=== PATIENT | female | born 1955 | race Caucasian/White ===

== ENCOUNTER 2019-09-18 09:53 | Outpatient (CLI) | payer MEDICARE, SELFPAY ==
[2019-09-18 10:21] LABS: Creatinine Urine 83.88 mg/dL (40-278); Total Protein Urine Random 10.2 mg/dL (0.0-11.9)
[2019-09-18 11:00] LABS: Albumin Level 3.7 g/dL (3.4-5.0); Anion Gap 14.3 mmol/L (7-16); Blood Urea Nitrogen 25 mg/dL (7-18); Carbon Dioxide 26 mmol/L (21-32); Chloride 107 mmol/L (98-108); Estimated Glomerular Filt Rate 45; Glucose 74 mg/dL (70-99); Osmolality Calculated 299 mOsm/kg (285-295); Phosphorus 3.8 mg/dL (2.6-4.7); Potassium 4.3 mmol/L (3.5-5.1); Sodium 143 mmol/L (136-145)
[2019-09-23 13:18] LABS: Parathyroid Intact 84 pg/mL (14-64)
[2019-09-24 20:14] LABS: Vitamin D 25 Hydroxy 17 ng/mL (30-100)
== END 2019-09-18 09:54 | disposition home or self-care (01) ==
LOC: CHSLAB 09:56
PROVIDERS: PCP Nurse Practitioner Family; Visit Provider Internal Medicine Nephrology
DX: N18.3 Chronic kidney disease, stage 3 (moderate) (principal); I12.9 Hypertensive chronic kidney disease with stage 1 through stage 4 chronic kidney disease, or unspecified chronic kidney disease; R80.8 Other proteinuria
CPT/HCPCS: 36415; 80069; 82306; 82570; 83970; 84156

== ENCOUNTER 2021-06-02 11:40 | Outpatient (CLI) | payer MEDICARE, MEDICAID, SELFPAY ==
--- NOTE | ~2021-06-02 | XR_ITS ---
XR thoracic spine 3V DATE: 06/02/2021 12:44 INDICATION: Thoracic back pain, muscle spasms TECHNIQUE: AP, lateral and swimmer views COMPARISON: 10/16/2004 thoracic spine FINDINGS: There is diffuse osteopenia. There is minimal dextroscoliosis of the upper thoracic spine and slight levoscoliosis of the lower th oracic spine. Diffuse idiopathic skeletal hyperostosis of the mid and lower thoracic spine. No fracture or dislocation or bone destruction. The thoracic pedicles are intact. No paraspinal soft tissue thickening. IMPRESSION: Diffuse osteopenia Minimal scoliosis Diffuse idiopathic skeletal hyperostosis of the mid and lower thoracic spine Reviewed, dictated and finalized at location A. RACT SERVICEMAN
--- NOTE | ~2021-06-02 | XR_ITS ---
XR lumbar spine 2-3V DATE: 06/02/2021 12:45 INDICATION: Back pain, muscle spasm TECHNIQUE: AP, lateral, coned lateral lumbosacral views COMPARISON: 10/09/2008 lumbar spine FINDINGS: There is diffuse osteopenia. There is no fracture or dislocation or bone destruction. The lumbar pedicles are intact. There is mild degenerative spurring of the lumbar spine. Lumbar and lumbosacral interspaces are rela tively well preserved. The sacroiliac joints are intact. IMPRESSION: Mild degenerative disc disease Osteopenia Reviewed, dictated and finalized at location A. E EXERCISER
--- NOTE | ~2021-06-02 | DEXA_ITS ---
Bone Density Report Name: Minnie Gonsales Age: 65 Sex: Female Ethnicity: White Date of : 1955 Indication: postmenopausal; screening for osteoporosis; height loss; Referring Provider: Johnny Iqbal Study: Bone densitometry was performed. Exam Date: June 02, 2021 Accession number: [id number] Bone Density: Region BMD T-score Z-score Classification AP Spine(L1-L4) 0.797 -2.3 -0.3 Osteopenia Femoral Neck (Left) 0.662 -1.7 0.0 Osteopenia Total Hip (Left) 0.817 -1.0 0.3 Normal Femoral Neck (Right) 0.685 -1.5 0.2 Osteopenia Total Hip (Right) 0.786 -1.3 0.1 Osteopenia Femoral Neck Mean 0.674 -1.6 0.1 Osteopenia Total Hip Mean 0.801 -1.2 0.2 Osteopenia World Health Organization criteria for BMD impression classify patients as: Normal (T-score at or above -1.0), Osteopenia (T-score between -1.0 and -2.5), or Osteoporosis (T-score at or below -2.5). 10-year Fracture Risk(1): Major Osteoporotic Fracture 8.7% Hip Fracture 1.1% Reported Risk Factors: [place] (), Neck BMD=0.662, BMI=39.3 (1) FRAX(R) Version 3.08. Fracture probability calculated for an untreated patient. Fracture probability may be lower if the patient has received treatment. Clinical Information Provided by Patient: Has used the following medications: Vitamin D Patient maximum height was 64 Menopause Age: 48 No regular weight bearing exercise Drinks caffeinated beverages Onset of menses at age 10 Number of children 0 Impression: The patient has low bone mass, based on the Total Spine T-score. Discussion: BONE DENSITY IS LOW AT ONE OR MORE SKELETAL SITES. This patient's lowest T-score is low at one or more skeletal sites. It meets the World Health Organization's (WHO) criteria for ?low bone mass? (T-score between -1.0 and -2.5). The patient's 10-year risk of fracture as calculated by FRAX is less than the threshold where pharmacological therapy is recommended by the National Osteoporosis Foundation (NOF). However, all treatment decisions require clinical judgment and consideration of individual patient factors, including patient preferences, comorbidities, previous drug use, risk factors not captured in the FRAX model (e.g., frailty, falls, vitamin D deficiency, increased bone turnover, interval significant decline in bone density) and possible under or overestimation of fracture risk by FRAX. The patient should follow a healthful lifestyle (good nutrition with adequate calcium and vitamin D, and appropriate weight-bearing exercise). Follow-Up: Consider repeating this study in 2 to 3 years to reassess this patient's status, or sooner if there is some new clinical indication. Reported by: Dr. Alonso Liz on 06/02/2021 12:23:00 PM.
== END 2021-06-02 11:41 | disposition home or self-care (01) ==
PROVIDERS: PCP Family Medicine; Visit Provider Family Medicine
DX: M81.0 Age-related osteoporosis without current pathological fracture (principal); M54.50 Low back pain, unspecified; M54.6 Pain in thoracic spine
CPT/HCPCS: 72072; 72100; 77080

== ENCOUNTER 2021-07-25 10:39 | Outpatient (CLI) | payer MEDICARE, MEDICAID, SELFPAY ==
--- NOTE | ~2021-07-25 | XR_ITS ---
EXAMINATION: XR foot RT min 3V DATE: 07/25/2021 11:09 INDICATION: Right foot pain. Ulcer lateral to base of fifth metatarsal. TECHNIQUE: 4 views of right foot were obtained. COMPARISON: None. FINDINGS: Bone alignment is normal. No fracture. There is mild osteoarthritis of fifth metatarsophala ngeal joint and some the interphalangeal joints and midfoot joints. There is moderate osteoarthritis of second tarsometatarsal joint. There are enthesophytes at the posterior and plantar aspects of calc aneal tuberosity. IMPRESSION: 1. No evidence of osteomyelitis. 2. Polyarticular osteoarthritis. Reviewed, dictated and finalized at location B. IC HEALTH SANITARIAN
[2021-07-25 10:58] LABS: Basophils Absolute Auto 0.04 K/mm3 (0.00-0.10); Basophils Percent Auto 0.5 % (0.0-1.0); Eosinophils Absolute Auto 0.15 K/mm3 (0.02-0.50); Eosinophils Percent Auto 1.9 % (1.0-6.0); Hemoglobin 14.7 g/dL (11.7-13.8); Immature Granulocyte Absolute 0.02 K/mm3 (0.00-0.00); Immature Granulocyte Percent A 0.3 % (0.0-0.0); Lymphocytes Absolute Auto 1.54 K/mm3 (1.10-4.50); Lymphocytes Percent Auto 19.3 % (18.0-42.0); Mean Corpuscular HGB Conc 31.3 g/dL (32.0-36.0); Mean Corpuscular Hemoglobin 25.4 pg (27.0-31.0); Mean Corpuscular Volume 81.3 fL (78.0-102.0); Monocytes Absolute Auto 0.42 K/mm3 (0.10-0.90); Monocytes Percent Auto 5.3 % (2.0-11.0); Neutrophils Absolute Auto 5.8 K/mm3 (1.7-7.2); Neutrophils Percent Auto 72.7 % (50.0-70.0); Platelet Count Result 270 K/mm3 (150-420); Red Blood Count 5.78 M/mm3 (4.20-5.40); Red Cell Distribution Width 14.4 % (11.6-14.4)
[2021-07-25 11:20] LABS: Anion Gap 11 mmol/L (8-16); Blood Urea Nitrogen 21 mg/dL (7-18); Calcium 9.1 mg/dL (8.5-10.1); Carbon Dioxide 27 mmol/L (21-32); Chloride 100 mmol/L (98-108); Estimated Glomerular Filt Rate 43; Glucose 98 mg/dL (70-99); Osmolality Calculated 289 mOsm/kg (285-295); Potassium 4.3 mmol/L (3.5-5.1); Sodium 138 mmol/L (136-145)
== END 2021-07-25 10:40 | disposition home or self-care (01) ==
LOC: CHSLAB 10:42
PROVIDERS: PCP Family Medicine; Visit Provider Family Medicine
DX: M79.671 Pain in right foot (principal); L03.90 Cellulitis, unspecified
CPT/HCPCS: 36415; 73630; 80048; 85025; 87070; 87075; 87147; 87186; 87205

== ENCOUNTER 2021-08-02 09:34 | Outpatient (CLI) | payer MEDICARE, MEDICAID, SELFPAY ==
--- NOTE | ~2021-08-02 | US_ITS ---
EXAMINATION: US arterial ankle brachial ind EXAM DATE: 08/02/2021 10:07 INDICATION: Peripheral vascular disease, unspecified/poor pulses . TECHNIQUE: Segmental pressures and plethysmographic and Doppler waveforms of the brachial and lower e xtremity arteries were obtained. There is no prior study for comparison. FINDINGS: Right and left brachial artery pressures of 153 mm Hg and 138 mm Hg, respectively, are concordant (no rmal difference <= 30 mmHg). RIGHT LEG: The ankle-brachial index (SHARON) is 1.10 (normal >= 0.9-1). The great toe pressure is 102 mmHg The lower extremity ratios, segmental pressure gradients as follows; Dorsalis pedis: 1.10 (168 mmHg). Posterior tibial: 1.07 (164 mmHg). (Normal gradients <= 20-30 mmHg between adjacent levels on the same leg or the same levels on the two legs). Arterial waveforms are biphasic DP, monophasic PT. LEFT LEG: The ankle-brachial index (SHARON) is 1.12 (normal >= 0.9-1). The great toe pressure is 103 mmHg. The lower extremity ratios, segmental pressure gradients as follows; Dorsalis pedis: 0.86 (132 mmHg). Posterior tibial: 1.12 (171 mmHg). (Normal gradients <= 20-30 mmHg between adjacent levels on the same leg or the same levels on the two legs). Arterial waveforms are monophasic. IMPRESSION: 1. Right ankle-brachial index 1.10, normal. 2. Left ankle-brachial index 1.12, normal. 3. Segmental pressures as above. Reviewed, dictated and finalized at location G. Built [place] signed by Jude Garcia M.D. on 08/02/2021 12:10 APPARATUS CLEANER
== END 2021-08-02 09:35 | disposition home or self-care (01) ==
LOC: CHSIMG 09:38
PROVIDERS: PCP Family Medicine; Visit Provider Family Medicine
DX: I73.9 Peripheral vascular disease, unspecified (principal)
CPT/HCPCS: 93922

== ENCOUNTER 2022-07-27 14:16 | Outpatient (CLI) | payer MEDICARE, MEDICAID, SELFPAY ==
--- NOTE | ~2022-07-27 | XR_ITS ---
XR thoracic spine 3V DATE: 07/27/2022 14:47 INDICATION: Thoracic and low back pain TECHNIQUE: AP, lateral and swimmer views COMPARISON: None FINDINGS: There is diffuse idiopathic skeletal hyperostosis of the thoracic spine, involving particul naomi the mid and lower thoracic region. Osteopenia. No fracture or dislocation or bone destruction. The thoracic pedicles are intact. No paraspinal soft tissue thickening. IMPRESSION: Diffuse idiopathic skeletal hyperostosis of the thoracic spine Osteopenia Reviewed, dictated and finalized at location A. LATION GENETICIST
--- NOTE | ~2022-07-27 | XR_ITS ---
EXAMINATION: XR lumbar spine 2-3V DATE: 07/27/2022 14:48 INDICATION: Low back pain TECHNIQUE: Anteroposterior and lateral views of the lumbar spine, and cone-down lateral view of the l umbosacral junction were obtained. COMPARISON: 06/02/2021 FINDINGS: There is no fracture. Bone alignment is normal. There is mild loss of intervertebral disc s pace height at L4-5 and L5-S1. The lumbar vertebral body heights are maintained. There is moderate fa cet joint osteoarthritis of the lower lumbar spine. Calcified atherosclerosis is noted. IMPRESSION: 1. Mild lumbar spondylosis without acute findings or significant interval change. Reviewed, dictated and finalized at location L. ON FARMWORKER IMPRESSION: 1. Mild lumbar spondylosis without acute findings or significant interval latesha morales
== END 2022-07-27 14:17 | disposition home or self-care (01) ==
LOC: CHSIMG 14:20
PROVIDERS: PCP Family Medicine; Visit Provider Family Medicine
DX: M54.50 Low back pain, unspecified (principal); M48.14 Ankylosing hyperostosis [Forestier], thoracic region; M85.88 Other specified disorders of bone density and structure, other site; M43.06 Spondylolysis, lumbar region
CPT/HCPCS: 72072; 72100

== ENCOUNTER 2023-08-28 18:07 | Emergency (ER) | payer MEDICARE, MEDICAID, SELFPAY ==
[2023-08-28] VITALS (17 sets, daily range): BP systolic 129–174; BP diastolic 63–120; PULSE 62; RESP 17; TEMP 36.7; O2SAT 96–100
--- NOTE | ~2023-08-28 | CT_ITS ---
EXAMINATION: CT brain wo con DATE: 08/28/2023 19:01 INDICATION: Headache TECHNIQUE: Computed tomography (CT) of the head was performed without intravenous contrast. Sagittal and coronal reconstructions were performed. The mA was adjusted according to patient size. Iterative reconstruction technique was employed. The dose-length product was 681.00 mGy-cm. COMPARISON: None FINDINGS: No acute intracranial hemorrhage, acute infarction or abnormal extra axial fluid collection. There is mild to moderate scattered white matter hypoattenuation consistent with chronic small vessel ischemi c disease. Symmetric prominence of the sulci consistent with mild age-appropriate diffuse cerebral vo lume loss. Ventricles are normal and symmetric. No mass/mass effect. The orbits, paranasal sinuses a nd mastoid air cells are normal. IMPRESSION: 1. No acute cardiopulmonary disease. 2. Age-related changes including mild diffuse volume loss and mild to moderate scattered white matter hypoattenuation consistent with chronic small vessel ischemic disease. Reviewed, dictated and finalized at location A. T AVAILABILITY LEADER IMPRESSION: 1. No acute cardiopulmonary disease. 2. Age-related changes including mild diffuse volume loss and mild to moderate scattered white matter hypoattenuation consistent with chronic small vessel isc hemic disease.
--- NOTE | 2023-08-28 18:40 | ED.HA ---
HPI - Headache General Chief Complaint: Headache Stated Complaint: headache. Time Seen by Provider: 08/28/23 18:16 History of Present Illness HPI Narrative: Patient is a 67 year old female with history of prior CVA, bells palsy, migraines here with a headache. Patient notes that headache was present when she woke up yesterday morning. During the day yesterday she began having some episodes of nausea with multiple episodes of emesis which seemed to worsen her headache. She notes continued nausea, no more episodes of vomiting. She notes some associated dizziness and unsteadiness on her feet, this seems to worsen with rapid movements of her head. She did receive morphine and zofran en route, this seems to have significantly improved her symptoms, headache has resolved. No trauma. No blood thinner use. She does note similar history of dizziness, nausea and light sensitivity with her migraines in the past. Related Data Home Medications Medication Instructions Recorded Confirmed ergocalciferol (vitamin D2) 1,250 50,000 unit PO DAILY 06/06/19 08/28/23 mcg (50,000 unit) capsule Allergies Allergy/AdvReac Type Severity Reaction Status Date / Time acetaminophen [From Vicodin] AdvReac Intermediate Nausea and Verified 08/28/23 19:41 Vomiting codeine AdvReac Intermediate Nausea and Verified 08/28/23 19:41 Vomiting hydrocodone [From Vicodin] AdvReac Intermediate Nausea and Verified 08/28/23 19:41 Vomiting Review of Systems Review of Systems: All systems reviewed & are unremarkable except as noted in HPI and below PMFSH Past Medical History Medical History (Updated 08/28/23 @ 20:41 by Deepthi Ba MD) Osteoarthritis Overweight Vitamin D deficiency Surgical History Surgical History History of adenoidectomy Age 17 History of ankle surgery Left Ankle Fixation 2002 History of surgery on arm Right Arm Fixation 08-25-2017 Hx of tonsillectomy Age 17 Social History Social History (Updated 08/20/23 @ 13:12 by Staci King MA) Smoking status: Never smoker Alcohol intake: never Substance use: never Do You Feel Safe in your Home?: Yes Lack of Transportation: No Lack of Food: Never True Current Housing: I Have Housing Concerned About Future Housing: No Difficulty Paying Gas/Electric Bills: No Difficulty Paying for Meds: No Currently Unemployed: No Education: High School Diploma/GED Difficulty w/ Childcare or Family Care: No Occupation/Education: retired Additional occupation/education comments: Homemaker Gender identity (if verbalized by the patient): Female Spiritual care concerns: No Exam Narrative: GENERAL: Well-appearing, well-nourished, and in no acute distress. HEAD: Normocephalic, atraumatic. EYES: PERRLA and EOMI. Fatiguable bilateral horizontal nystagmus. ENT: Nares clear. Mucous membranes moist. NECK: Supple. CHEST: Clear to auscultation. No respiratory distress. HEART: Regular rate and rhythm. Normal peripheral pulses. ABDOMEN: Soft, nontender, nondistended. EXTREMITIES: Normal range of motion. No edema. SKIN: Warm, dry, no rash. NEURO: No focal deficits. No facial droop, normal heel to pop, no upper or lower extremity drift present. No sensory deficits appreciated. Alert and oriented x3. NIH of 0. PSYCH: Normal mood and affect. Course Course Emergency Course: Chart review performed. Patient is here with headache. Triage vitals grossly normal aside from hypertension. Patient follows with Dr. Zaavla from nephrology, his last note was reviewed from last week. Patient seen evaluated, nontoxic appearing. She does have history of a couple prior strokes, no neural deficits appreciated exam. Her symptoms have significantly improved since receiving medications in the ambulance. Will give additional dose of Reglan, Benadryl, IV fluids, Tylenol help with her headache. CT brain ordered. Low susp
[2023-08-28] MEDS: SODIUM CHLORIDE 0.9% IV 1,000 ML 999 ML IV CONT (18:50)
[2023-08-28] MEDS: METOCLOPRAMIDE HCL INJ 10 MG/2 ML VIAL IV PUSH (18:51)
[2023-08-28] MEDS: ACETAMINOPHEN 500 MG TABLET 1000 MG PO (18:51)
[2023-08-28] MEDS: diphenhydrAMINE HCl INJ 50 MG/ML VIAL 25 MG IV PUSH (18:52)
[2023-08-28 20:18] LABS: SARS-CoV-2 RNA PCR Negative (Negative)
[2023-08-28 20:34] LABS: Influenza A QL RT-PCR Negative (Negative); Influenza B QL RT-PCR Negative (Negative); RSV RNA, RT-PCR Negative (Negative)
== END 2023-08-28 21:04 | disposition home or self-care (01) ==
PROVIDERS: Emergency Provider Student in an Organized Health Care Education/Training Program; PCP Family Medicine
DX: R42 Dizziness and giddiness (principal); R51.9 Headache, unspecified; Z86.73 Personal history of transient ischemic attack (TIA), and cerebral infarction without residual deficits; Z20.822 Contact with and (suspected) exposure to COVID-19
CPT/HCPCS: 70450; 87637; 96361; 96374; 96375; 99284; J1200; J2765; J7030

== ENCOUNTER 2024-10-10 11:15 | Outpatient (CLI) | payer MEDICARE, MEDICAID, SELFPAY ==
--- NOTE | ~2024-10-10 | DEXA_ITS ---
Bone Density Report Name: ELLIOT LEWIS Age: 68 Sex: Female Ethnicity: White Date of : 1955 Indication: osteopenia; height loss; asthma or emphysema; Referring Provider: Johnny Iqbal Study: Bone densitometry was performed. Exam Date: October 10, 2024 Accession number: [id number] Bone Density: Region BMD T-score Z-score Classification AP Spine(L1-L4) 0.817 -2.1 0.1 Osteopenia Femoral Neck (Left) 0.654 -1.8 0.1 Osteopenia Total Hip (Left) 0.827 -0.9 0.6 Normal Femoral Neck (Right) 0.701 -1.3 0.5 Osteopenia Total Hip (Right) 0.820 -1.0 0.6 Normal Femoral Neck Mean 0.678 -1.5 0.3 Osteopenia Total Hip Mean 0.824 -1.0 0.6 Normal World Health Organization criteria for BMD impression classify patients as: Normal (T-score at or above -1.0), Osteopenia (T-score between -1.0 and -2.5), or Osteoporosis (T-score at or below -2.5). 10-year Fracture Risk(1): Major Osteoporotic Fracture 9.6% Hip Fracture 1.6% Reported Risk Factors: [place] (), Neck BMD=0.654, BMI=38.3 (1) FRAX(R) Version 3.08. Fracture probability calculated for an untreated patient. Fracture probability may be lower if the patient has received treatment. Previous Exams: Region Exam Age BMD T-score BMD Change BMD Change Date g/cm2 vs Baseline vs Previous AP Spine (L1-L4) 10/10/2024 68 0.817 -2.1 0.020 (2.5%)# 0.020 (2.5%)# 06/02/2021 65 0.797 -2.3 Total Hip(Left) 10/10/2024 68 0.827 -0.9 0.010 (1.2%)# 0.010 (1.2%)# 06/02/2021 65 0.817 -1.0 Total Hip(Right) 10/10/2024 68 0.820 -1.0 0.034 (4.4%)# 0.034 (4.4%)# 06/02/2021 65 0.786 -1.3 *Denotes significance at 95% confidence level, LSC for AP Spine = 0.022 g/cm2, LSC for Total Hip = 0.027 g/cm2 # Denotes dissimilar scan types or analysis methods Clinical Information Provided by Patient: Has used the following medications: Vitamin D, Calcium Has the following medical conditions: Asthma or Emphysema Patient maximum height was 63 Menopause Age: 48 No regular weight bearing exercise Drinks caffeinated beverages Onset of menses at age 10 Number of children 0 Impression: The patient has low bone mass, based on the Total Spine T-score. No significant bone loss was observed. Discussion: BONE DENSITY IS LOW AT ONE OR MORE SKELETAL SITES. This patient's lowest T-score is low at one or more skeletal sites. It meets the World Health Organization's (WHO) criteria for ?low bone mass? (T-score between -1.0 and -2.5). The patient's 10-year risk of fracture as calculated by FRAX is less than the threshold where pharmacological therapy is recommended by the National Osteoporosis Foundation (NOF). However, all treatment decisions require clinical judgment and consideration of individual patient factors, including patient preferences, comorbidities, previous drug use, risk factors not captured in the FRAX model (e.g., frailty, falls, vitamin D deficiency, increased bone turnover, interval significant decline in bone density) and possible under or overestimation of fracture risk by FRAX. The patient should follow a healthful lifestyle (good nutrition with adequate calcium and vitamin D, and appropriate weight-bearing exercise). Follow-Up: Consider repeating this study in 2 to 3 years to reassess this patient's status, or sooner if there is some new clinical indication. Reported by: JUAN DAVID on 10/10/2024 11:40:00 AM. Reviewed, dictated and finalized at location A.
--- OUTSIDE RECORDS SUMMARY | 2024-10-10 12:14 | XMS_ITS | Clinical Summary ---
Author Organization [facility] Address [address] [place] [address] Care Team Providers Care Cna Instructor Name Role Phone Vipul Bentley MD Primary Care Provider [phone] Source Comments [facility],non-owned Affiliates and Associated Physician Practices is amultiple site organization consisting of ambulatory clinics and hospital sitesin [place], [place], [place] and [place]. This disclosure is being madepursuant to the Care Everywhere program and may not contain all information available regarding this patient. Last updated 18.[facility] Immunizations Name Administration Dates Next Due ZOSTER VACCINE, LIVE 05/18/2016 Social History Tobacco Use Types Packs/Day Years Used Date Smoking Tobacco: Never Assessed Sex and Gender Information Value Date Recorded Sex Assigned at Not on file Gender Identity Not on file Sexual Orientation Not on file Plan of Treatment Health Maintenance Due Date Last Done Comments BONE DENSITY TESTING 1955 COLOGUARD (AGES 45-75) - COL ON CA SCREENING 1955 COLON MONITORING 1955 COLONOSCOPY - COLON CA SCREENING 1955 CT COLONOGRAPHY - COLON CA SCREENING 1955 Colorectal Cancer Screening 1955 FIT - COLON CA SCREENING 1955 FLEX SIG - COLON CA SCREENING 1955 LIPID TESTING 1955 MAMMOGRAM 1955 HEPATITIS C SCREENING 12/08/1971 DTAP/TDAP/TD VACCINES (1 - Tdap) 1972 PNEUMOCOCCAL VACCINE 50+ (1 of 1 - PCV) 12/13/2003 ZOSTER VACCINE (2 of 3) 07/13/2016 05/18/2016 COVID-19 VACCINE (1 - 2023-2 5 season) 2024 INFLUENZA VACCINE (#1) 2024 DEPRESSION SCREENING 07/16/2024 Respiratory Syncytial Virus (RSV) Vaccine Pt: or over 60 yrs (1 - 1-dose 75+ series) 2028 HEPATITIS B VACCINE Aged Out No longe r eligible based on patient's age to complete this topic HIB VACCINE Aged Out No longer eligi ble based on patient's age to complete this topic HPV VACCINE Aged Out No longer eligi ble based on patient's age to complete this topic MENINGOCOCCAL (Group B) VACC INE SHARED DECISION-MAKING Aged Out No longer eligibl e based on patient's age to complete this topic MENINGOCOCCAL GROUPS A/C/Y/W VACCINE Aged Out No longer eligible b ased on patient's age to complete this topic Care Teams Cna Instructor Relationship Specialty Start Date End Date Vipul Bentley MD PCP - General Family Medicine 05/18/16
--- OUTSIDE RECORDS SUMMARY | 2024-10-10 12:14 | XMS_ITS | Continuity of Care Document ---
Author Organization [facility] Address [address] [place] [address] Phone Care Team Providers Care Machinery Mover Name Role Phone Carly Samuels Unavailable Unavailable Advance Directives Directive Yes / No Effective Date File Name No Information Encounters Encounter Description Practice Location Reason(s) For Visit Diagnoses Date Provider Providers Copied on Encounter [facility], [address], [place], [place], [id number], [place] tel:[phone] [facility] No Information Sep-0 9-200 5 Abril Carroll. [address], [place], [address], [place]. tel:[phone] Family History Family Member Type Diagnosis Age At Onset No Information Payers Payer name Insurance type Covered democrat ID Authoriza tion(s) No Information Social History [...]
--- OUTSIDE RECORDS SUMMARY | 2024-10-10 12:14 | XMS_ITS | Clinical Summary ---
Author Organization [facility] Address [facility] [place] [address] Care Team Providers Care Sales Teacher Name Role Phone Vipul Bentley MD Primary Care Provider [phone] Social History Tobacco Use Types Packs/Day Years Used Date Smoking Tobacco: Never Assessed Comments Unknown Sex and Gender Information Value Date Recorded Sex Assigned at Not on file Legal Sex Female 8:07 PM CDT Gender Identity Not on file Sexual Orientation Not on file Last Filed Vital Signs Vital Sign Reading Time Taken Comments Blood Pressure 137/90 07/20/2017 1:06 PM FOIL CUTTER Pulse 101 07/20/2017 1:06 PM FOIL CUTTER Temperature - - Respiratory Rate - - Oxygen Saturation - - Inhaled Oxygen Concentration - - Weight 83.9 kg (185 lb) 07/20/2017 1:06 PM FOIL CUTTER Height 152.4 cm (5') 12/14/2016 12:52 PM CDT Body Mass Index 36.13 12/14/2016 12:52 PM CDT Plan of Treatment Health Maintenance Due Date Last Done Comments Colorectal Cancer Screening Colonoscopy (10 Years) 1955 Hepatitis C 12/13/1971 Mammogram Screening 1993 Zoster Vaccines (1 of 2) 12/13/2003 Dexa Scan (General) 2018 Pneumococcal Vaccine: 65+ Ye ars (1 of 1 - PCV) 2018 COVID-19 Vaccine ( - 2023-2 5 season) 2024 Influenza Adult (#1) 2024 DTaP, Tdap and Td Vaccines ( 2 - Td or Tdap) 12/30/2026 12/30/2016 RSV Immunization or 60+ Years (1 - 1-dose 75+ series) 2028 Meningococcal B Vaccine Aged Out No l onger eligible based on patient's age to complete this topic Meningococcal Vaccine Aged Out No kyle levy eligible based on patient's age to complete this topic RSV Immunizations Under 20 Months Aged Out No longer eligible based on patient's age to complete this topic Care Teams Sales Teacher Relationship Specialty Start Date End Date Vipul Bentley MD PCP - General 01/12/17
--- OUTSIDE RECORDS SUMMARY | 2024-10-10 12:14 | XMS_ITS | Clinical Summary ---
Author Organization [facility] Address [address] [place] [address] Phone Care Team Providers Care Assembler Convertible Top Name Role Phone Johnny Iqbal MD Primary Care Provider [phone] Allergies Active Allergy Reactions Criticality Noted Date Comments Codeine Unknown 04/21/2019 Hydrocodone-Acetaminophen Unknown 04/21/2019 Medications Medication Sig Dispensed Refills Start Date End Date Status Cholecalciferol (VITAMIN D-3) 1000 units capsule Take 1,000 Units by mouth 1 (one) time each day Active diclofenac (VOLTAREN) 75 MG EC tablet Take 75 mg by mouth 2 (two) times a day 2 03/25/2019 Active triamterene-hydroCHLO ROthiazide (DYAZIDE) 37.5-25 MG per capsule Take by mouth 1 (one) time each day 2 03/25/2019 Active traMADol (ULTRAM) 50 MG tablet Take 1 tablet by mouth every 6 hours Active clotrimazole (LOTRIMIN) 1 % cream APPLY TO AFFECTED AREA TWICE A DAY IN THE MORNING AND IN THE EVENING 02/17/2020 Active famotidine (PEPCID) 20 MG tablet TAKE 1 TABLET BY MOUTH EVERYDAY AT BEDTIME 01/29/2020 Active loratadine (CLARITIN) 10 MG tablet Take 10 mg by mouth 1 (one) time each day 01/29/2020 Active triamcinolone (KENALOG) 0.1 % cream APPLY THIN COAT TO AFFECTED AREA TWICE A DAY 02/10/2020 Active omeprazole (PriLOSEC) [address] capsule TAKE 1 CAPSULE BY MOUTH 2 TIMES PER DAY BEFORE MEALS 10/01/2020 Active cephalexin (KEFLEX) 500 MG capsule 07/25/2021 Active cyclobenzaprine (FLEXERIL) 10 MG tablet 06/02/2021 Active sulfamethoxazole-trim ethoprim (BACTRIM DS) 800-160 MG per tablet 07/25/2021 Act yfn Active Problems Problem Noted Date Diagnosed Date Osteoporosis 08/22/2017 Chronic kidney disease Osteoarthritis Vitamin D deficiency Hypertension Immunizations Name Administration Dates Next Due Influenza, Injectable, Quadrivalent, Preservativ e Free 04/29/2018 Influenza, Quadrivalent 04/21/2019 Tdap 12/30/2016 Zoster 05/18/2016 Social History Tobacco Use Types Packs/Day Years Used Date Smoking Tobacco: Never Smokeless Tobacco: Never Sex and Gender Information Value Date Recorded Sex Assigned at Not on file Gender Identity Not on file Sexual Orientation Not on file Last Filed Vital Signs Vital Sign Reading Time Taken Comments Blood Pressure 134/78 04/12/2022 10:46 AM CDT Pulse - - Temperature 36.3 C (97.4 F) 04/12/2022 10:46 AM CDT Respiratory Rate 18 04/12/2022 10:46 AM CDT Oxygen Saturation - - Inhaled Oxygen Concentration - - Weight 89.9 kg (198 lb 1.6 oz) 04/12/2022 10:46 AM CDT Height 154.9 cm (5' 1 ) 04/12/2022 10:46 AM CDT Body Mass Index 37.43 04/12/2022 10:46 AM CDT Plan of Treatment Health Maintenance Due Date Last Done Comments Pneumococcal PPSV23/PCV13 65 + Years / Low and Medium Risk (1 of 4 - PCV) 2018 Influenza Vaccine (#1) 2024 04/29/2018 Care Teams Assembler Convertible Top Relationship Specialty Start Date End Date Johnny Iqbal MD [address] [place] [address] PCP - General Internal Medicine 02/25/20
== END 2024-10-10 11:16 | disposition home or self-care (01) ==
PROVIDERS: PCP Family Medicine; Visit Provider Family Medicine
DX: Z78.0 Asymptomatic menopausal state (principal); M85.89 Other specified disorders of bone density and structure, multiple sites
CPT/HCPCS: 77080

== ENCOUNTER 2024-11-10 18:26 | Emergency (ER) | payer MEDICARE, MEDICAID, SELFPAY ==
--- NOTE | ~2024-11-10 | CT_ITS ---
EXAMINATION: CT brain wo con DATE: 11/10/2024 18:55 INDICATION: fall, HI . TECHNIQUE: Computed tomography (CT) of the head was performed without intravenous contrast. The mA wa s adjusted according to patient size. Iterative reconstruction technique was employed. The dose-lengt h product was 681.00 mGy-cm. COMPARISON: 08/28/2023. FINDINGS: No acute intracranial hemorrhage or extra-axial fluid collection. No hydrocephalus, mass, or herniation. No acute ischemic infarct. Unremarkable dural venous sinus attenuation. No acute osseous abnormality. The aerated spaces are clear. Mild atrophy and chronic white matter change. Atherosclerotic intracranial calcification. IMPRESSION: No acute intracranial process. Reviewed, dictated and finalized at location K.
--- NOTE | ~2024-11-10 | CT_ITS ---
EXAMINATION: CT cervical spine wo con DATE: 11/10/2024 18:55 INDICATION: fall, HI TECHNIQUE: Computed tomography (CT) of the cervical spine was performed without intravenous contrast. Automated exposure control and iterative reconstruction technique were employed. The dose-length pro duct was 420.32 mGy-cm. COMPARISON: None. FINDINGS: Vertebral Body Alignment: Intact. Craniocervical and atlantoaxial alignment: Moderate degenerative change. Alignment intact. Osseous structures/fracture: No evidence of a lytic or blastic process in the visualized spine. No e vidence of acute fracture. Cervical soft tissues: The paraspinal soft tissues planes are maintained. Degenerative changes: Multilevel degenerative disc disease and facet arthropathy. Severe right neural foraminal narrowing at C4-5 secondary to degenerative changes. No severe central canal narrowing. IMPRESSION: No acute fracture or traumatic malalignment in the cervical spine. Reviewed, dictated and finalized at location K.
[2024-11-10 18:26] VITALS: BP 158/111; PULSE 84; RESP 19; TEMP 36.4; O2SAT 97
--- OUTSIDE RECORDS SUMMARY | 2024-11-10 18:45 | XMS_ITS | Clinical Summary ---
Author Organization [facility] Address [address] [place] [address] Care Team Providers Care Octave Board Racker Name Role Phone Vipul Bentley MD Primary Care Provider [phone] Source Comments [facility],non-owned Affiliates and Associated Physician Practices is amultiple site organization consisting of ambulatory clinics and hospital sitesin [place], [place], [place] and [place]. This disclosure is being madepursuant to the Care Everywhere program and may not contain all information available regarding this patient. Last updated 18.[facility] Immunizations Immunization Administration Dates Next Due ZOSTER VACCINE, LIVE 05/18/2016 Social History Tobacco Use Types Packs/Day Years Used Date Smoking Tobacco: Never Assessed Comments Unknown Sex and Gender Information Value Date Recorded Sex Assigned at Not on file Legal Sex Female 12:35 PM CDT Gender Identity Not on file [...] VACCINE (1 - 2023-2 5 season) 2024 DEPRESSION SCREENING 07/16/2024 INFLUENZA VACCINE (Season Ended) 2025 Respiratory Syncytial Virus (RSV) Vaccine Pt: or [...] on patient's age to complete this topic [place] [address] [place] [address] Care Teams Octave Board Racker Relationship Specialty Start Date End Date Vipul Bentley MD PCP - General Family Medicine 05/18/16
--- OUTSIDE RECORDS SUMMARY | 2024-11-10 18:45 | XMS_ITS | Continuity of Care Document ---
Author Organization [facility] Address [address] [place] [address] Phone Care Team Providers Care Block Hacker Name Role Phone Carly Samuels Unavailable Unavailable Advance Directives Directive Yes / No Effective Date File Name No Information Encounters Encounter Description Practice Location Reason(s) For Visit Diagnoses Date Provider Providers Copied on Encounter [facility], [address], [place], [place], [id number], [place] tel:[phone] [facility] No Information Sep-0 9-200 5 Abril Carroll. [address] , [address], [place], [address], [place]. tel:[phone] Family History Family Member Type Diagnosis Age [...]
--- OUTSIDE RECORDS SUMMARY | 2024-11-10 18:45 | XMS_ITS | Clinical Summary ---
Author Organization [facility] Address [address] [place] [address] Phone Care Team Providers Care Nursing Home Admissions Director Name Role Phone Johnny Iqbal MD Primary Care Provider [phone] Allergies Active Allergy Reactions Criticality Noted Date Comments Codeine Unknown 04/21/2019 Hydrocodone-Acetaminophen Unknown 04/21/2019 Medications Cholecalciferol (VITAMIN D-3) 1000 units capsule Take 1,000 Units by mouth 1 (one) time each day Active diclofenac (VOLTAREN) 75 MG EC tablet Take 75 mg by mouth 2 (two) times a day 2 03/25/2019 Active triamterene-hyd roCHLOROthiazid e (DYAZIDE) 37.5-25 MG per capsule Take by [...] cyclobenzaprine (FLEXERIL) 10 MG tablet 06/02/2021 Active sulfamethoxazol e-trimethoprim (BACTRIM DS) 800-160 MG per tablet 07/25/2021 Active Active Problems Problem Noted Date Diagnosed Date Osteoporosis 08/22/2017 Chronic kidney disease Osteoarthritis Vitamin D deficiency Hypertension Immunizations Immunization Administration Dates Next Due Influenza, Injectable, Quadrivalent, Preservativ e Free 04/29/2018 Influenza, Quadrivalent 04/21/2019 Tdap 12/30/2016 Zoster 05/18/2016 Social History Tobacco Use Types Packs/Day Years Used Date Smoking Tobacco: Never Smokeless Tobacco: Never Comments Unknown Sex and Gender Information Value Date Recorded Sex Assigned at Not on file Legal Sex Female 9:00 AM MDT Gender Identity Not on file Sexual Orientation Not on file 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 Not on file Not on file Not on elise e Last Filed Vital Signs Vital Sign Reading [...] Medium Risk (1 of 4 - PCV) 12/13/2003 Influenza Vaccine (Season Ended) 2025 04/29/20 18 Insurance MEDICARE ADVANTAGE Member Subscriber Plan / Payer (Ef fective 2019-Present) Name:Minnie Gonsales Member ID:[id number] HMO Relation to Subscriber:Self Name:Minnie Gonsales Subscriber ID:[id number] HMO Payer ID:[id number] Type:Not on file Address: [facility] [address] [place] [address] MEDICAID - [place] Care Teams Nursing Home Admissions Director Relationship Specialty Start Date End Date Johnny Iqbal MD [address] [place] [address] PCP - General Internal Medicine 02/25/20
--- OUTSIDE RECORDS SUMMARY | 2024-11-10 18:45 | XMS_ITS | Clinical Summary ---
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 INSTRUCTOR Pulse 101 07/20/2017 1:06 PM BEHAVIORAL INSTRUCTOR Temperature - - Respiratory Rate - - Oxygen Saturation - - Inhaled Oxygen Concentration - - Weight 83.9 kg (185 lb) 07/20/2017 1:06 PM BEHAVIORAL INSTRUCTOR Height 152.4 cm (5') 12/14/2016 12:52 PM CDT Body Mass Index 36.13 12/14/2016 12:52 PM CDT Plan of Treatment Health Maintenance Due Date Last Done Comments Colorectal Cancer Screening Colonoscopy (10 Years) 1955 Hepatitis C 12/13/1971 Mammogram Screening 1993 Pneumococcal Vaccine: 50+ Ye ars (1 of 1 - PCV) 12/13/2003 Zoster Vaccines (1 of 2) 12/13/2003 Dexa Scan (General) 2018 COVID-19 Vaccine ( - 2023-2 5 season) 2024 DTaP, Tdap and Td Vaccines ( [...] age to complete this topic Care Teams Drawbridge Tender Relationship Specialty Start Date End Date Vipul Bentley MD PCP - General 01/12/17
[2024-11-10 19:14] VITALS: BP 159/94; PULSE 77; RESP 14; O2SAT 100
--- NOTE | 2024-11-10 19:30 | PC.NURSE ---
Assumed care of pt after receiving bedside report from Ashlyn @ 9582.
--- NOTE | 2024-11-10 19:54 | ED_ITS ---
HPI - Head Injury General Chief complaint: Head Injury Stated complaint: fell, struck head Time Seen by Provider: 11/10/24 18:31 Source: patient Mode of arrival: EMS Limitations: no limitations History of Present Illness HPI Narrative: Patient is a 68-year-old female who presents the ED via EMS with report of a head injury. Patient reports she was taking her daily walk around her neighborhood today when she tripped and fell. She hit her head on the ground and sustained small abrasions to her L forehead. Denied LOC. Denies dizziness, lightheadedness, vision changes. Denies syncope. Denies neck or back pain. Denies chest pain, shortness of breath. Sustained small abrasions to her left palm, but denies pain. Patient is not on any blood thinners. Tetanus is unknown. Related Data Home Medications ?Medication ?Instructions ?Recorded ?Confirmed ?Last Taken ?Type ergocalciferol (vitamin D2) 1,250 50,000 unit PO DAILY 06/06/19 02/18/24 Unknown History mcg (50,000 unit) capsule cholecalciferol (vitamin D3) 125 125 mcg PO DAILY 08/25/24 08/25/24 Unknown History mcg (5,000 unit) capsule losartan 50 mg tablet 50 mg PO DAILY 08/25/24 08/25/24 Unknown History Allergies Allergy/AdvReac Type Severity Reaction Status Date / Time acetaminophen (From Vicodin) AdvReac Intermediate Nausea and Verified 11/10/24 18:30 Vomiting codeine AdvReac Intermediate Nausea and Verified 11/10/24 18:30 Vomiting hydrocodone (From Vicodin) AdvReac Intermediate Nausea and Verified 11/10/24 18:30 Vomiting Review of Systems Review of Systems: All systems reviewed & are unremarkable except as noted in HPI. All systems reviewed & are unremarkable except as noted in HPI and below PMFSH Past Medical History Medical History (Updated 11/11/24 @ 02:16 by Evelyn Andrews PA-C) Overweight Vitamin D deficiency Osteoarthritis Surgical History Surgical History History of ankle surgery Left Ankle Fixation 2002 History of surgery on arm Right Arm Fixation 08-25-2017 History of adenoidectomy Age 17 Hx of tonsillectomy Age 17 Social History Social History Smoking status: Never smoker Alcohol intake: never Substance use: never Do You Feel Safe in your Home?: Yes Lack of Transportation: No Lack of Food: Never True Current Housing: I Have Housing Concerned About Future Housing: No Difficulty Paying Gas/Electric Bills: No Difficulty Paying for Meds: No Currently Unemployed: No Education: High School Diploma/GED Difficulty w/ Childcare or Family Care: No Occupation/Education: retired Additional occupation/education comments: Homemaker Gender identity (if verbalized by the patient): Female Spiritual care concerns: No Exam Narrative: GENERAL: Elderly but well appearing, obese with BMI of 35.7, non-toxic, in no acute distress. HEAD: Normocephalic. Small abrasions/superficial laceration to L forehead, L mid eyebrow - does not extend all the way through epidermis. No active bleeding. Mild focal TTP. EYES: PERRL/EOMI, conjunctiva clear ENT: Slight swelling and bruising to bridge of nose, no significant tenderness. No septal hematoma. No active or dried epistaxis. NECK: No midline cervical spinal tenderness. Normal ROM. RESPIRATORY: Airway patent, respirations nonlabored. Clear to auscultation bilaterally, no rales, rhonchi, wheezing. CARDIOVASCULAR: Regular rate and rhythm without murmurs, rubs, or gallops. MUSCULOSKELETAL: Moves all extremities. No gross deformities. No peripheral edema. No tenderness throughout midline thoracic or lumbar spine. No palpable bony deformities or step offs. No tenderness throughout distal radius, carpal bones of left hand. SKIN: Warm, dry, normal color. Small abrasion to L palmar region w/o active bleeding or tenderness NEURO: A&O X3. Speech clear. Cranial nerves II-XII grossly intact. Steady gait. No ataxic movements. No pronator drift. No focal deficits. PSYCHIATRIC: Appropriate mood and affect. Normal interaction. Course Vital Signs Vital signs: Vital Signs Temperature 97.6 F 11/10/24 18:26 Pulse Rate 84 11/10/24 18:26 Respiratory Rate 19 11/10/24 18:26 Blood Pressure 158/111 H 11/10/24 18:26 Pulse Oximetry 97 11/10/24 18:26 Oxygen Delivery Room Air 11/10/24 18:26 Temperature 97.6 F 11/10/24 18:26 Pulse Rate 77 11/10/24 19:14 Respiratory Rate 14 11/10/24 19:14 Blood Pressure 159/94 H 11/10/24 19:14 Pulse Oximetry 100 11/10/24 19:14 Oxygen Delivery Room Air 11/10/24 18:26 Procedures Laceration Laceration 1: Date: 11/10/24 Time: 20:58 Site: face Side (If applicable): left (forehead) Size (cm): 1 Description: linear Depth: simple, single layer Local Anesthetic: none Pre-repair: wound explored and irrigated ====== Skin Level ====== Skin layer closed with: steri strips ====== Subcutaneous Layer ====== ====== Muscle Layer ====== ====== Tendon Layer ====== Laceration 2: Date: 11/10/24 Time: 20:50 Site: face Side (If applicable): left Size (cm): 0.5 Description: linear Depth: simple, single layer Local Anesthetic: none Pre-repair: wound explored and irrigated ====== Skin Level ====== Skin layer closed with: steri strips ====== Subcutaneous Layer ====== ====== Muscle Layer ====== ====== Tendon Layer ====== MDM - Head Injury MDM Narrative Medical decision making narrative: Patient presented to ED status post ground level mechanical fall while walking in her neighborhood. Head injury with superficial lacerations to left forehead. No LOC. Vital signs are stable upon arrival. Patient is neurologically intact. No focal deficits. She is not on any anticoagulation. Denying any other areas of pain. CT brain and cervical spine were obtained and without acute traumatic findings. Patient later noted to have some swelling and bruising around bridge of nose. Minimal tenderness. She denies epistaxis currently or after fall. No septal hematoma on exam. Discussed obtaining further imaging to rule out nasal bone fracture. Patient declined. Tetanus updated in the ED. Lacerations to forehead were superficial. Discussed repair with Steri-Strips versus sutures. Patient would prefer not to receive stitches. Lacerations do not extend all the way through epidermis. Appropriate for Steri-Strips. Repaired without complications. Patient given wound care instructions, recommended close follow-up with PCP for further evaluation. Discussed very strict return precautions. Patient voiced understanding. Feels comfortable w/ discharge home. Discharged in stable condition. Medical Records Attestation: I reviewed the patient's medical records. Imaging Data Attestation: I personally reviewed and interpreted this imaging study as follows: Radiologist's impression: ITS Impressions Head CT 11/10/24 19:09 IMPRESSION: No acute intracranial process. Cervical Spine CT 11/10/24 19:22 IMPRESSION: No acute fracture or traumatic malalignment in the cervical spine. Discharge Plan Discharge Clinical Impression: Fall from ground level Closed head injury Qualifiers: Encounter type: initial encounter Qualified Code(s): S09.90XA - Unspecified injury of head, initial encounter Laceration of forehead Qualifiers: Encounter type: initial encounter Qualified Code(s): S01.81XA - Laceration without foreign body of other part of head, initial encounter Patient Disposition: Home Condition: Stable Instructions: Antibiotic Form, Head Injury (ED), Skin Adhesive Strips (ED), Facial Laceration (ED) Additional Instructions: Your imaging here did not show any evidence of traumatic findings. Recommend ice to areas of pain, Tylenol/ibuprofen as needed for pain. Keep forehead lacerations/Steri-Strips as dry as possible the next 24 hours. Allow Steri- Strips to fall off on their own. Recommend close follow-up with your primary care doctor within the next 1 week for further evaluation and wound check. Return to the ED if you experience recurrent fall or injury, worsening or severe pain, severe dizziness, vision changes, recurrent bleeding, unable to keep down food or drink, passing out, or any other symptoms of concern. Patient Language: Albanian Prescriptions: No Action ergocalciferol (vitamin D2) 50,000 unit capsule 50,000 unit PO DAILY ondansetron 4 mg tablet,disintegrating 4 mg PO Q6H PRN (Reason: nausea and vomiting) Qty: 14 0RF losartan 50 mg tablet 50 mg PO DAILY cholecalciferol (vitamin D3) 125 mcg (5,000 unit) capsule 125 mcg PO DAILY Follow-up/Referrals: Johnny Iqbal MD [Primary Care Provider] - Time of Disposition: 21:08
[2024-11-10] MEDS: ACETAMINOPHEN 500 MG TABLET 1000 MG PO (20:21)
[2024-11-10] MEDS: TETANUS,DIPHTHERIA,AC PERTUSSIS ADULT (0.5 ML) BOOSTRIX IM (20:27)
== END 2024-11-10 21:20 | disposition home or self-care (01) ==
PROVIDERS: Emergency Provider Physician Assistant; PCP Family Medicine
DX: S01.81XA Laceration without foreign body of other part of head, initial encounter (principal); Z23 Encounter for immunization; E55.9 Vitamin D deficiency, unspecified; M19.90 Unspecified osteoarthritis, unspecified site; W01.0XXA Fall on same level from slipping, tripping and stumbling without subsequent striking against object, initial encounter
CPT/HCPCS: 70450; 72125; 90471; 90715; 99284; A9270

== ENCOUNTER 2025-02-17 10:56 | Outpatient (CLI) | payer MEDICARE, MEDICAID, SELFPAY ==
[2025-02-17 11:20] LABS: Total Protein Urine Random 9 mg/dL; Ur Ttl Prot Creatinine Ratio 0.08 mg/mg (0-0.20)
--- OUTSIDE RECORDS SUMMARY | 2025-02-17 11:27 | XMS_ITS | Clinical Summary ---
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
--- OUTSIDE RECORDS SUMMARY | 2025-02-17 11:27 | XMS_ITS | Clinical Summary ---
Author Organization [facility] Address [address] [place] [address] Phone Care Team Providers Care Fine Wire Drawer Name Role Phone Johnny Iqbal MD Primary Care Provider [phone] Allergies Active Allergy Reactions Criticality Noted Date [...] 10:46 AM CDT Height 154.9 cm (5' 1) 04/12/2022 10:46 AM CDT Body Mass Index 37.43 04/12/2022 10:46 AM CDT Plan of Treatment Health Maintenance Due Date Last Done Comments Pneumococcal PPSV23/PCV13 65 + Years / Low and Medium Risk (1 of 2 - PCV) 12/13/2003 Influenza Vaccine (#1) 2025 04/29/[address] [place] [address] [place] [address] MEDICARE ADVANTAGE Member Subscriber Plan / Payer (Ef fective 2019-Present) Name:Minnie Gonsales Member ID:[id number] HMO Relation to Subscriber:Self Name:Minnie Gonsales Subscriber ID:[id number] HMO Payer ID:[id number] Type:Not on file Address: [facility] [address] [place] [address] MEDICAID - [place] Care Teams Fine Wire Drawer Relationship Specialty Start Date End Date Johnny Iqbal MD [address] [place] [address] PCP - General Internal Medicine 02/25/20
--- OUTSIDE RECORDS SUMMARY | 2025-02-17 11:28 | XMS_ITS | Clinical Summary ---
Author Organization [facility] Address [address] [place] [address] Care Team Providers Care Weed Cutter Name Role Phone Vipul Bentley MD Primary Care Provider Source Comments [facility],non-owned Affiliates and Associated Physician Practices is amultiple site organization consisting of ambulatory clinics and hospital sitesin [place], [place], [place] and [place]. This disclosure is being madepursuant to the Care Everywhere program and may not contain all information available regarding this patient. Last updated 18.[facility] Immunizations Immunization Administration Dates Next Due ZOSTER [...] season) 2024 DEPRESSION SCREENING 07/16/2024 INFLUENZA VACCINE (#1) 2025 Respiratory Syncytial Virus (RSV) Vaccine Pt: [...] patient's age to complete this topic Insurance [place] [address] Care Teams Weed Cutter Relationship Specialty Start Date End Date Vipul Bentley MD PCP - General Family Medicine 05/18/16
[2025-02-17 12:31] LABS: Albumin Level 4.5 g/dL (3.5-5.1); Anion Gap 6 mmol/L (4-12); Blood Urea Nitrogen 21 mg/dL (7-17); Calcium 10.5 mg/dL (8.4-10.2); Carbon Dioxide 24 mmol/L (22-30); Chloride 108 mmol/L (98-107); Estimated Glomerular Filt Rate 33; Glucose 101 mg/dL (65-110); Osmolality Calculated 289 mOsm/kg (285-295); Potassium 4.8 mmol/L (3.4-5.0); Sodium 138 mmol/L (137-145)
== END 2025-02-17 10:57 | disposition home or self-care (01) ==
PROVIDERS: PCP Family Medicine; Visit Provider Internal Medicine Nephrology
DX: I12.9 Hypertensive chronic kidney disease with stage 1 through stage 4 chronic kidney disease, or unspecified chronic kidney disease (principal); N18.31 Chronic kidney disease, stage 3a
CPT/HCPCS: 36415; 80069; 82570; 84156

== ENCOUNTER 2025-03-10 09:44 | Outpatient (CLI) | payer MEDICARE, MEDICAID, SELFPAY ==
--- OUTSIDE RECORDS SUMMARY | 2005-03-24 03:30 | XMS_ITS | Continuity of Care Document ---
Author Organization [facility] Address [address] [place] [address] Phone Care Team Providers Care Daycare Teacher Name Role Phone Carly Samuels Unavailable Unavailable Advance Directives Directive Yes / No Effective Date File Name No Information Encounters Encounter Description Practice Location Reason(s) For Visit Diagnoses Date Provider Providers Copied on Encounter [facility], [address], [place], [place], [id number], [place] tel:[phone] [facility] No Information Sep-0 9-200 5 Abril Carroll. [address] , [address], [place], [address], [place]. tel:[phone] Family History Family Member Type Diagnosis Age At Onset No Information Payers Payer name Insurance type Covered alliance party ID Authoriza tion(s) No Information Social History Type Description Quantity Date Captured Comments Sex Female Smoking Status No Information Chief Complaint And Reason For Visit No Information Reason For Referral Reason For Referral No Information History Of Present Illness Encounter Date Complaint History Of Prese nt Illness No Information Functional Status Date Functional Assessmen t No Information Instructions Date Instruction Additional Infor mation No Information Assessments Type Assessment Date No Information Patient Care Teams Name Effective Dates (start - stop) Status Members No Information
--- NOTE | ~2025-03-10 | XR_ITS ---
EXAMINATION: XR foot RT min 3V DATE: 03/10/2025 10:22 INDICATION: Pain in right foot TECHNIQUE: 4 images of the right foot were obtained. COMPARISON: 07/25/2021 FINDINGS: Soft tissue swelling about the right foot. Mild degenerative change in the first metatarsophalangeal joint. Moderate-sized plantar calcaneal spur. Stable bony irregularity of the proximal thirds of the second, third and fourth metatarsals, unchanged. No fracture. No dislocation. IMPRESSION: 1. No acute fracture or dislocation identified. 2. Grossly stable degenerative change about the right foot. 3. Soft tissue swelling about the right foot. If symptoms persist or worsen, consider a short-term follow-up study or additional imaging for further assessment. Reviewed, dictated and finalized at location Q. IMPRESSION: 1. No acute fracture or dislocation identified. 2. Grossly stable degenerative change about the right foot. 3. Soft tissue swelling about the right foot. If symptoms persist or worsen, consider a short-term follow-up study or additio nal imaging for further assessment.
[2025-03-10 09:58] LABS: Hematocrit 43.6 % (35.0-42.0); Hemoglobin 13.9 g/dL (11.7-13.8); Mean Corpuscular HGB Conc 31.9 g/dL (32-36); Mean Corpuscular Hemoglobin 27.4 pg (27.0-31.0); Mean Corpuscular Volume 85.8 fL (78.0-102.0); Platelet Count Result 222 K/mm3 (150-420); Red Blood Count 5.08 M/mm3 (4.20-5.40); White Blood Count 4.9 K/mm3 (4.8-10.8)
--- OUTSIDE RECORDS SUMMARY | 2025-03-10 10:04 | XMS_ITS | Clinical Summary ---
Author Organization [facility] Address [address] [place] [address] Phone Care Team Providers Care Teamsite Developer Name Role Phone Johnny Iqbal MD Primary Care Provider Allergies Active Allergy Reactions Criticality Noted Date [...] 12/13/2003 Influenza Vaccine (#1) 2025 04/29/[address] [place] [address] MEDICARE ADVANTAGE Member Subscriber Plan / Payer (Ef fective 2019-Present) Name:Minnie Gonsales Member ID:[id number] [id number] Relation to Subscriber:Self Name:Minnie Gonsales Subscriber ID:[id number] HMO Payer ID:[id number] Type:Not on file Address: [facility] [address] [place] [address] MEDICA[place] - [place] Care Teams Teamsite Developer Relationship Specialty Start Date End Date Johnny Iqbal MD [address] [place] [address] PCP - General Internal Medicine 02/25/20
--- OUTSIDE RECORDS SUMMARY | 2025-03-10 10:04 | XMS_ITS | Clinical Summary ---
Author Organization [facility] Address [address] [place] [address] Care Team Providers Care Enrollment Management Coordinator Name Role Phone Vipul Bentley MD Primary Care Provider [phone] Source Comments [facility],non-owned Affiliates and Associated Physician Practices is amultiple site organization consisting of ambulatory clinics and hospital sitesin [place], [place], [place] and [place]. This disclosure is being madepursuant to the Care Everywhere program and may not contain all information available regarding this patient. Last updated 18.[facility] Immunizations Immunization Administration Dates Next Due ZOSTER [...] patient's age to complete this topic Insurance [place] [address] Care Teams Enrollment Management Coordinator Relationship Specialty Start Date End Date Vipul Bentley MD PCP - General Family Medicine 05/18/16
[2025-03-10 11:09] LABS: Anion Gap 8 mmol/L (4-12); Blood Urea Nitrogen 24 mg/dL (7-17); Calcium 9.8 mg/dL (8.4-10.2); Carbon Dioxide 26 mmol/L (22-30); Chloride 105 mmol/L (98-107); Estimated Glomerular Filt Rate 43; Glucose 96 mg/dL (65-110); Osmolality Calculated 292 mOsm/kg (285-295); Potassium 3.8 mmol/L (3.4-5.0); Sodium 139 mmol/L (137-145); Uric Acid 5.6 mg/dL (2.5-7.5)
[2025-03-10 17:12] LABS: Immature Granulocyte Percent A 0.2 % (0.0-0.0); Lymphocytes Absolute Auto 1.55 K/mm3 (1.10-4.50); Nucleated Red Blood Cells Absolute Auto 0.00 K/mm3 (0.00-0.00); Nucleated Red Blood Cells Perc 0.0 % (0-0.0)
== END 2025-03-10 09:45 | disposition home or self-care (01) ==
LOC: CHSLAB 09:46
PROVIDERS: PCP Family Medicine; Visit Provider Family Medicine
DX: M79.671 Pain in right foot (principal); M79.89 Other specified soft tissue disorders
CPT/HCPCS: 36415; 73630; 80048; 84550; 85025; 85027

== ENCOUNTER 2025-03-30 09:42 | Outpatient (CLI) | payer MEDICARE, MEDICAID, SELFPAY ==
--- NOTE | ~2025-03-30 | XR_ITS ---
EXAMINATION: XR foot RT min 3V DATE: 03/30/2025 10:18 INDICATION: Pain in right foot TECHNIQUE: 4 images of the right foot were obtained. COMPARISON: 03/10/2025 FINDINGS: Healing fracture of the distal third of the second metatarsal. Bones appear osteopenic. Soft tissue swelling about the right foot. No other fracture identified. Moderate-sized plantar calcaneal spur. IMPRESSION: 1. Healing fracture of the second metatarsal. 2. Soft tissue swelling about the right foot. If symptoms persist or worsen, consider a short-term follow-up study or additional imaging for further assessment. Reviewed, dictated and finalized at location Q. IMPRESSION: 1. Healing fracture of the second metatarsal. 2. Soft tissue swelling about the right foot. If symptoms persist or worsen, consider a short-term follow-up study or additio nal imaging for further assessment.
--- OUTSIDE RECORDS SUMMARY | 2025-03-30 10:41 | XMS_ITS | Clinical Summary ---
Author Organization [facility] Address [address] [place] [place] [address] Care Team Providers Care Material Carrier Name Role Phone Vipul Bentley MD Primary Care Provider [phone] [facility],non-owned Affiliates and Associated Physician Practices is amultiple site organization consisting of ambulatory clinics and hospital sitesin [place], [place], [place] and [place]. This disclosure is being madepursuant to the Care Everywhere program and may not contain all information available regarding this patient. Last updated 18.[facility] Immunizations Immunization Administration Dates Next Due ZOSTER [...] ZOSTER VACCINE (2 of 3) 07/13/2016 05/18/2016 DEPRESSION SCREENING 07/16/2024 COVID-19 VACCINE (1 - 2023-2 5 season) 2025 INFLUENZA VACCINE (#1) 2025 Respiratory Syncytial Virus [...] patient's age to complete this topic [place] [address] [place] [address] Care Teams Material Carrier Relationship Specialty Start Date End Date Vipul Bentley MD PCP - General Family Medicine 05/18/16
--- OUTSIDE RECORDS SUMMARY | 2025-03-30 10:41 | XMS_ITS | Clinical Summary ---
Author Organization [facility] Address [address] [place] [address] Phone Care Team Providers Care Regulated Program Manager Name Role Phone Johnny Iqbal MD Primary Care Provider [phone] Allergies Active Allergy Reactions Criticality Noted Date [...] 12/13/2003 Influenza Vaccine (#1) 2025 04/29/[address] [place] [address] [address] MEDICARE ADVANTAGE Member Subscriber Plan / Payer (Ef fective 2019-Present) Name:Minnie Gonsales Member ID:[id number] HMO Relation to Subscriber:Self Name:Minnie Gonsales Subscriber ID:[id number] HMO Payer ID:[id number] Type:Not on file Address: [facility] [address] [place] [address] [place] [address] Care Teams Regulated Program Manager Relationship Specialty Start Date End Date Johnny Iqbal MD [address] [place] [address] PCP - General Internal Medicine 02/25/20
== END 2025-03-30 09:43 | disposition home or self-care (01) ==
LOC: CHSIMG 09:45
PROVIDERS: PCP Family Medicine; Visit Provider Orthopaedic Surgery
DX: S92.321D Displaced fracture of second metatarsal bone, right foot, subsequent encounter for fracture with routine healing (principal); R22.41 Localized swelling, mass and lump, right lower limb
CPT/HCPCS: 73630

== ENCOUNTER 2025-04-27 08:16 | Outpatient (CLI) | payer MEDICARE, MEDICAID, SELFPAY ==
--- OUTSIDE RECORDS SUMMARY | 2005-03-24 03:30 | XMS_ITS | Continuity of Care Document ---
Author Organization [facility] Address [address] [place] [address] Phone Care Team Providers Care Ditch Worker Name Role Phone Carly Samuels Unavailable Unavailable Advance Directives Directive Yes / No Effective Date File Name No Information Encounters Encounter Description Practice Location Reason(s) For Visit Diagnoses Date Provider Providers Copied on Encounter [facility], [address], [place], [place], [id number], [place] tel:[phone] [facility] No Information Sep-0 9-200 5 Abril Carroll. [address] , [address], [place], [address], [place]. tel:[phone] Family History Family Member Type Diagnosis Age At Onset No Information Payers Payer name Insurance type Covered libertarian ID Authoriza tion(s) No Information Social History [...]
--- NOTE | ~2025-04-27 | XR_ITS ---
XR foot RT min 3V INDICATION: S92.321A - Displaced fracture of second metatarsal bone, ... . COMPARISON: 03/30/2025 FINDINGS: Frontal, lateral and oblique views of the right foot were obtained. There is no acute fracture or dislocation. Healing fracture of the distal diaphysis of the second metatarsal is noted. IMPRESSION: Radiographic examination of the right foot demonstrate healing fracture of the second metatarsal with increasing callus formation. Reviewed, dictated and finalized at location S.
--- OUTSIDE RECORDS SUMMARY | 2025-04-27 08:26 | XMS_ITS | Clinical Summary ---
Author Organization [facility] Address [address] [place] [address] Phone Care Team Providers Care Railroad Brake Operator Name Role Phone Johnny Iqbal MD Primary Care Provider [phone] Allergies Active Allergy Reactions Criticality Noted Date [...] 12/13/2003 Influenza Vaccine (#1) 2025 04/29/[address] [place] [address] MEDICARE ADVANTAGE Member Subscriber Plan / Payer (Ef fective 2019-Present) Name:Minnie Gonsales Member ID:[id number] [id number] Relation to Subscriber:Self Name:Minnie Gonsales Subscriber ID:[id number] HMO Payer ID:[id number] Type:Not on file Address: [facility] [address] [place] [address] MEDICA[place] - [place] Care Teams Railroad Brake Operator Relationship Specialty Start Date End Date Johnny Iqbal MD [address] [place] [address] PCP - General Internal Medicine 02/25/20
--- OUTSIDE RECORDS SUMMARY | 2025-04-27 08:26 | XMS_ITS | Clinical Summary ---
Author Organization [facility] Address [facility] [place] [address] Care Team Providers Care Fabrication And Assembly Supervisor Name Role Phone Gaby Mcneil MD Primary Care Provider [phone] Encounters Date Type Department Care Team Description 03/19/2025 10:00 AM CDT - 03/19/2025 11:59 PM CDT Hospital Encounter [facility] [address] [facility] [place] [address] Gaby Mcneil MD Discharge Disposition: Home or Self Care (Routine Discharge) 03/19/2025 Travel from Last 3 Months Social History Tobacco Use Types Packs/Day Years Used Date Smoking Tobacco: Never Assessed Comments Unknown Sex and Gender Information Value Date Recorded Sex Assigned at Female 03/19/2025 9:57 AM CDT Legal Sex Female 8:07 PM CDT Gender Identity Not on file Sexual Orientation Not on file Last Filed Vital Signs Vital Sign Reading Time Taken Comments Blood Pressure 137/90 07/20/2017 1:06 PM ADVERTISING REP Pulse 101 07/20/2017 1:06 PM ADVERTISING REP Temperature - - Respiratory Rate - - Oxygen Saturation - - Inhaled Oxygen Concentration - - Weight 83.9 kg (185 lb) 07/20/2017 1:06 PM ADVERTISING REP Height 152.4 cm (5') 12/14/2016 12:52 PM CDT Body Mass Index 36.13 12/14/2016 12:52 PM CDT Plan of Treatment Health Maintenance Due Date Last Done Comments Colorectal Cancer Screening Colonoscopy (10 Years) 1955 Hepatitis C 12/13/1971 Mammogram Screening 1993 Zoster Vaccines (2 of 3) 07/13/2016 05/18/2016 Annual Medicare Wellness Visit 2018 Dexa Scan (General) 2018 Pneumococcal Vaccine: 50+ Years (2 of 2 - PPSV23) 01/28/2021 01/29/2020 COVID-19 Vaccine (1 - 2023-2 5 season) 2025 Influenza Adult (#1) 2025 04/21/2019, 04/29/2018 RSV Immunization or 60+ Years (1 - 1-dose 75+ series) 2028 DTaP, Tdap and Td Vaccines ( 3 - Td or Tdap) 11/10/2034 11/10/2024, 12/30/2016 Meningococcal B Vaccine Aged Out No l onger eligible based on patient's age to complete this topic Meningococcal Vaccine Aged Out No kyle levy eligible based on patient's age to complete this topic RSV Immunizations Under 20 Months Aged Out No longer eligible b ased on patient's age to complete this topic Procedures Procedure Name Priority Date/Time Associated Diagnosis Comments XR FOOT RT 3V Routine 03/19/2025 10:26 AM CDT Pain in right foot from Last 3 Months Results * XR FOOT RT 3V (03/19/2025 10:26 AM CDT) Anatomical Region Laterality Modality Foot Radiographic Marta ging 03/23/2025 1:00 PM CDT Impressions 03/23/2025 1:01 PM CDT IMPRESSION: 1. Second metatarsal fracture as described. 2. Small plantar calcaneal spur. 3. Soft tissue swelling dorsally at the level of the metatarsals. Ordered By: GABY MCNEIL Interpreted By: Samson Early MD, 03/23/2025 1:00 PM Narrative 03/23/2025 1:01 PM CDT [address] [place] [address] Examination: Right foot. Exam time: 0953 hours. Clinical history: Pain for three weeks. Comparison: None. Technique: Three views. Findings: There is a healing transverse fracture through the distal shaft of the second metatarsal in anatomic alignment, potentially a stress fracture. No other fracture is identified. There is a small plantar calcaneal spur. No other significant bone or joint abnormality is noted. There is soft tissue swelling dorsally at the level of the metatarsals. Procedure Note Samson Early MD - 03/23/2025 [place] [id number] [place] [address] Examination: Right foot. Exam time: 0953 hours. Clinical history: Pain for three weeks. Comparison: None. Technique: Three views. Findings: There is a healing transverse fracture through the distal shaftof the second metatarsal in anatomic alignment, potentially a stressfracture. No other fracture is identified. There is a small plantarcalcaneal spur. No other significant bone or joint abnormality is noted.There is soft tissue swelling dorsally at the level of the metatarsals. IMPRESSION: 1. Second metatarsal fracture as described. 2. Small plantar calcaneal spur. 3. Soft tissue swelling dorsally at the level of the metatarsals. Ordered By: GABY MCNEIL Interpreted By: Samson Early MD, 03/23/2025 1:00 PM Gaby Mcneil MD GENERAL IMAGING Final Result from Last 3 Months Insurance [facility] MEDICARE MEDICAID Care Teams Fabrication And Assembly Supervisor Relationship Specialty Start Date End Date Gaby Mcneil MD [address] [place] [address] PCP - General FAMILY PRACTICE 03/19/25
--- OUTSIDE RECORDS SUMMARY | 2025-04-27 08:26 | XMS_ITS | Clinical Summary ---
Author Organization [email or web address] Address [address] [place] [place] [address] Care Team Providers Care Silk Screen Cutter Name Role Phone Vipul Bentley MD Primary Care Provider [phone] Source Comments [email or web address],non-owned Affiliates and Associated Physician Practices is amultiple site organization consisting of ambulatory clinics and hospital sitesin [place], [place], [place] and [place]. This disclosure is being madepursuant to the Care Everywhere program and may not contain all information available regarding this patient. Last updated 18.[email or web address] Immunizations Immunization Administration Dates Next Due ZOSTER [...] patient's age to complete this topic [place] [address] [address] Care Teams Silk Screen Cutter Relationship Specialty Start Date End Date Vipul Bentley MD PCP - General Family Medicine 05/18/16
== END 2025-04-27 08:17 | disposition home or self-care (01) ==
LOC: CHSIMG 08:18
PROVIDERS: PCP Family Medicine; Visit Provider Orthopaedic Surgery
DX: S92.321D Displaced fracture of second metatarsal bone, right foot, subsequent encounter for fracture with routine healing (principal)
CPT/HCPCS: 73630